=== PATIENT | female | born 1990 | race Caucasian/White ===

== ENCOUNTER 2016-07-28 17:12 | Outpatient (CLI) | payer OTHER ==
[~2016-07-28] VITALS: Ht 175.3 cm; Wt 84.5 kg
[2016-07-28 17:00] VITALS: BP 115/61
[2016-07-28] MEDS ORDERED: PREN1TAB60 PO (19:25)
== END 2016-07-28 19:48 | disposition home or self-care (01) ==
LOC: LDOP 17:12
PROVIDERS: ATTEND Student in an Organized Health Care Education/Training Program
DX: O26.893 Other specified pregnancy related conditions, third trimester (principal); R10.30 Lower abdominal pain, unspecified; M54.9 Dorsalgia, unspecified; O62.9 Abnormality of forces of labor, unspecified; O24.313 Unspecified pre-existing diabetes mellitus in pregnancy, third trimester; O99.343 Other mental disorders complicating pregnancy, third trimester; F32.9 Major depressive disorder, single episode, unspecified; Z3A.38 38 weeks gestation of pregnancy
CPT/HCPCS: 59025; 99201; G0463

== ENCOUNTER 2016-07-29 03:19 | Inpatient (IN) | payer OTHER ==
[~2016-07-29] VITALS: Ht 175.3 cm; Wt 80.0 kg
[~2016-07-29 03:19] MED LIST: PREN1TAB60 PO
[2016-07-29 03:29] VITALS: BP 134/72
[2016-07-29] MEDS ORDERED: LACTATED RINGERS 1,000 ML IV SCH ×2 (03:41→06:42)
[2016-07-29] MEDS ORDERED: D5%-LACTATED RINGERS 1,000 ML IV SCH ×2 (03:41→06:42)
[2016-07-29] MEDS ORDERED: AMPICILLIN 2 GM in SODIUM CHLORIDE 0.9% 100 ML IVPB STA ×2 (03:41→06:42)
[2016-07-29] MEDS ORDERED: OXYTOCIN 30U/ 0.9% NaCL 500ML 500 ML IV ONE (03:41)
[2016-07-29] MEDS ORDERED: FENTANYL PF 100 MCG/2ML IV PRN ×2 (04:00→07:00)
[2016-07-29] MEDS ORDERED: FENTANYL PF 100 MCG/2ML IVPush PRN ×2 (04:00→07:00)
[2016-07-29] MEDS ORDERED: AMPICILLIN 1 GM in SODIUM CHLORIDE 0.9% 50 ML IVPB SCH (04:00)
[2016-07-29] MEDS ORDERED: ONDANSETRON 2MG/ML, 2ML IVPush PRN ×2 (04:00→07:00)
[2016-07-29] MEDS ORDERED: OXYTOCIN 30U/ 0.9% NaCL 500ML 500 ML ONE ×2 (04:22→11:00)
[2016-07-29] MEDS ORDERED: MISOPROSTOL 200 MCG TABLET ONE (04:22)
[2016-07-29] MEDS ORDERED: LIDOCAINE 1%, 20ML ONE (04:22)
[2016-07-29] MEDS ORDERED: FENTANYL PF 100 MCG/2ML ONE (06:31)
[2016-07-29] MEDS ORDERED: METOCLOPRAMIDE 5 MG/ML, 2ML IVPush PRN (07:00)
[2016-07-29] MEDS ORDERED: AMPICILLIN 1 GM in SODIUM CHLORIDE 0.9% 50 ML IV SCH (11:00)
[2016-07-29] MEDS ORDERED: HYDROcodone/APAP 5/325 TABLET PO PRN ×2 (12:00)
[2016-07-29] MEDS ORDERED: ONDANSETRON 2MG/ML, 2ML IV PRN (12:00)
[2016-07-29] MEDS ORDERED: MISOPROSTOL 200 MCG TABLET PR PRN (12:00)
[2016-07-29] MEDS ORDERED: METHYLERGONOVINE 0.2 MG/ML IM PRN (12:00)
[2016-07-29] MEDS ORDERED: DOCUSATE 100 MG CAPSULE PO PRN (12:00)
[2016-07-29] MEDS ORDERED: IBUPROFEN 600 MG TABLET ONE (12:01)
[2016-07-29] MEDS: OXYTOCIN 30U/ 0.9% NaCL 500ML 500 ML IV SCH ×2 (12:06→21:54)
[2016-07-29] MEDS: IBUPROFEN 600 MG TABLET PO PRN ×2 (12:07→23:23)
[2016-07-29 12:45] VITALS: BP 107/65
[2016-07-29 16:16] VITALS: BP 105/59
[2016-07-29 18:09] LABS: DIFF TOTAL CELLS COUNTED 100 CELL DIFF
[2016-07-29 18:11] LABS: ANISOCYTOSIS 1+; HYPOCHROMIA 1+; VERIFY COUNTS? YES
[2016-07-29 18:12] LABS: POLYCHROMASIA 1+
[2016-07-29 19:29] VITALS: BP 94/56
[2016-07-30] VITALS: BP 95/55
[2016-07-30 04:00] VITALS: BP 105/62
[2016-07-30] MEDS: IBUPROFEN 600 MG TABLET PO PRN ×2 (05:18→11:47)
[2016-07-30 08:10] VITALS: BP 107/65
[2016-07-30] MEDS ORDERED: PRENATAL VIT/IRON/FA 1 EACH TABLET PO SCH (09:00)
[2016-07-30] MEDS ORDERED: DOCU-30 PO (10:19)
[2016-07-30] MEDS ORDERED: IBUP-1222 PO (10:23)
[2016-07-30] MEDS ORDERED: DIPH,PERTUSS(ACELL),TET VAC/PF NC IM-VACC ONE ×2 (11:37→12:00)
[2016-07-30 12:32] VITALS: BP 120/78
== END 2016-07-30 15:00 | disposition home or self-care (01) | DRG 775 ==
LOC: LDOP 03:19 → LDIP 03:35 → 2NW 12:25
PROVIDERS: ADMIT Student in an Organized Health Care Education/Training Program; ATTEND Student in an Organized Health Care Education/Training Program
PROC: 10E0XZZ Delivery of Products of Conception, External Approach (ICD-10-PCS; principal; 2016-07-29)
PROC: 10907ZC Drainage of Amniotic Fluid, Therapeutic from Products of Conception, Via Natural or Artificial Opening (ICD-10-PCS; 2016-07-29)
PROC: 0HQ9XZZ Repair Perineum Skin, External Approach (ICD-10-PCS; 2016-07-29)
DX: O99.824 Streptococcus B carrier state complicating childbirth (principal); O99.344 Other mental disorders complicating childbirth; F32.9 Major depressive disorder, single episode, unspecified; O70.0 First degree perineal laceration during delivery; Z81.8 Family history of other mental and behavioral disorders; Z37.0 Single live birth; Z3A.38 38 weeks gestation of pregnancy; Z82.49 Family history of ischemic heart disease and other diseases of the circulatory system; Z87.440 Personal history of urinary (tract) infections; Z87.59 Personal history of other complications of pregnancy, childbirth and the puerperium
CPT/HCPCS: 36415; 85025; 86850; 86900; 90715; J0290; J2590; J7120